=== PATIENT | female | born 1980 | race Caucasian/White ===

== ENCOUNTER 2020-10-05 18:20 | Emergency (ER) | payer BC ==
[2020-10-05 18:31] VITALS: BP 136/95; PULSE 95; TEMP 99; BMI 23.5
[2020-10-05] MEDS ORDERED: ACETYLCYSTEINE 20% 200MG/ML 30ML VIAL *FOR INJECTION USE ONLY IVPB ONE (19:14)
[2020-10-05] MEDS ORDERED: ACETAMINOPHEN 1000 MG/100 ML VIAL (NON FORMULARY) IVPB ONE (19:15)
[2020-10-05] MEDS ORDERED: ACETAMINOPHEN INJECTION 100 ML IVPB ONE (19:19)
[2020-10-05 19:58] LABS: ALBUMIN 4.2 g/dl (3.4-5.0); BILIRUBIN,TOTAL 1.6 mg/dl (0.2-1); CALCIUM 9.4 mg/dl (8.5-10); CREATININE 0.9 mg/dl (0.55-1.3); POTASSIUM 3.9 mmol/L (3.5-5.1); TOT PROT 7.2 g/dl (6.4-8.2)
[2020-10-05 20:19] LABS: HCG,QUALITATIVE URINE NEGATIVE
[2020-10-05 20:23] LABS: EPITHELIAL CELLS MODERATE /hpf
[2020-10-05 20:59] LABS: BASO % 0.2 % (0-2.0); EOS % 0.1 % (0-4.5); HEMATOCRIT 44.9 % (32.4-45.2); HEMOGLOBIN 14.8 GM/dL (10.7-15.3); LYMPH % 11.5 % (8-40); MCH 29.8 pg (25.7-33.7); MCHC 32.9 g/dl (32.0-36.0); MEAN CELL VOLUME 90.4 fl (80-96); MEAN PLT VOLUME 11.7 fl (7.5-11.1); MONO % 8.6 % (3.8-10.2); NEUT % 79.6 % (42.8-82.8); PLATELET COUNT 188 K/MM3 (134-434); RBC 4.97 M/mm3 (3.60-5.2)
[2020-10-05] MEDS ORDERED: metroNIDAZOLE 250 MG TABLET PO ONE (21:25)
[2020-10-05] MEDS ORDERED: levoFLOXacin 750 MG TABLET PO ONE (21:26)
[2020-10-05] MEDS ORDERED: metroNIDAZOLE 250 MG TABLET ONE (21:37)
== END 2020-10-05 21:45 | disposition home or self-care (01) ==
LOC: FER 18:20
PROC: 3E033NZ Introduction of Analgesics, Hypnotics, Sedatives into Peripheral Vein, Percutaneous Approach (ICD-10-PCS; principal; 2020-10-05)
PROC: 3E033GC Introduction of Other Therapeutic Substance into Peripheral Vein, Percutaneous Approach (ICD-10-PCS; 2020-10-05)
DX: K57.92 Diverticulitis of intestine, part unspecified, without perforation or abscess without bleeding (principal)
CPT/HCPCS: 36415; 74177-TC; 80053; 81003; 81015; 84703; 85025; 99285-25; C9803; J0131; Q9967; U0003

== ENCOUNTER 2024-01-03 11:39 | Emergency (ER) | payer BC, OTHER ==
[2024-01-03 11:49] VITALS: RESP 18; TEMP 97.6; BMI 24.5
[2024-01-03] MEDS ORDERED: RABIES VACCINE (PCEC)/PF 2.5 UNIT/VIAL IM ONE (12:26)
[2024-01-03] MEDS ORDERED: RABIES IMMUNE GLOBULIN/PF 300 UNIT/ML (5 ML) VIAL IM ONE (12:26)
[2024-01-03] MEDS: RABIES IMMUNE GLOBULIN 300 UNITS/1 ML VIAL IM ONE (12:45)
[2024-01-03] MEDS: RABIES VACCINE (PCEC)/PF 2.5 UNIT/VIAL IM ONE (12:46)
[2024-01-03 12:50] VITALS: BP 164/90; PULSE 115
== END 2024-01-03 13:30 | disposition home or self-care (01) ==
LOC: FER 11:39
PROC: 3E0234Z Introduction of Serum, Toxoid and Vaccine into Muscle, Percutaneous Approach (ICD-10-PCS; principal; 2024-01-03)
DX: S60.312A Abrasion of left thumb, initial encounter (principal); R00.0 Tachycardia, unspecified; I10 Essential (primary) hypertension; W54.0XXA Bitten by dog, initial encounter; Z20.3 Contact with and (suspected) exposure to rabies
CPT/HCPCS: 90375; 90675; 99284-25

== ENCOUNTER 2024-01-06 16:40 | Emergency (ER) | payer BC ==
[2024-01-06 16:52] VITALS: TEMP 98.4; BMI 24.5
[2024-01-06] MEDS ORDERED: RABIES VACCINE (PCEC)/PF 2.5 UNIT/VIAL IM ONE (16:54)
[2024-01-06] MEDS: RABIES VACCINE (PCEC)/PF 2.5 UNIT/VIAL IM ONE (17:00)
[2024-01-06 17:28] VITALS: BP 165/91; PULSE 98; RESP 16
== END 2024-01-06 17:25 | disposition home or self-care (01) ==
LOC: FER 16:40
DX: Z29.14 Encounter for prophylactic rabies immune globulin (principal)
CPT/HCPCS: 90675; 99281-25

== ENCOUNTER 2024-01-10 17:02 | Emergency (ER) | payer BC ==
[2024-01-10 17:23] VITALS: BP 154/68; PULSE 78; RESP 18; TEMP 97.8; BMI 24.5
[2024-01-10] MEDS ORDERED: RABIES VACCINE (PCEC)/PF 2.5 UNIT/VIAL IM ONE (17:25)
[2024-01-10] MEDS: RABIES VACCINE (PCEC)/PF 2.5 UNIT/VIAL IM ONE (17:26)
== END 2024-01-10 17:30 | disposition home or self-care (01) ==
LOC: FER 17:02
PROC: 3E0234Z Introduction of Serum, Toxoid and Vaccine into Muscle, Percutaneous Approach (ICD-10-PCS; principal; 2024-01-10)
DX: Z29.14 Encounter for prophylactic rabies immune globulin (principal)
CPT/HCPCS: 90675; 99281-25

== ENCOUNTER 2024-01-17 16:54 | Emergency (ER) | payer BC ==
[2024-01-17 17:25] VITALS: BP 150/98; PULSE 83; RESP 20; TEMP 98.7; BMI 26.2
[2024-01-17] MEDS: RABIES VACCINE (PCEC)/PF 2.5 UNIT/VIAL IM ONE (17:38)
== END 2024-01-17 17:44 | disposition home or self-care (01) ==
LOC: FER 16:54
DX: Z29.14 Encounter for prophylactic rabies immune globulin (principal)
CPT/HCPCS: 90675; 99282-25

== ENCOUNTER 2024-05-09 12:39 | Emergency (ER) | payer BC ==
[2024-05-09 13:02] VITALS: RESP 20; TEMP 99.1; BMI 23.5
[2024-05-09] MEDS: ALBUTEROL SO4 2.5/IPRATROPIUM 0.5 INH SOL 3 ML VIAL.NEB. NEB ONE (13:36)
[2024-05-09] MEDS: SODIUM CHLORIDE 0.9% 1000 ML INFUS.BAG IV ONE ×2 (13:36→14:06)
[2024-05-09] MEDS ORDERED: ALBUTEROL SO4 2.5/IPRATROPIUM 0.5 INH SOL 3 ML VIAL.NEB. NEB ONE (13:37)
[2024-05-09 13:41] LABS: INR 0.97 (0.83-1.09); PROTHROMBIN TIME (PATIENT) 11.1 SEC (9.7-13.0)
[2024-05-09 13:58] LABS: HEMATOCRIT 43.2 % (32.4-45.2); HEMOGLOBIN 13.8 G/dL (10.7-15.3); MCH 27.8 pg (25.7-33.7); MEAN CELL VOLUME 86.9 fl (80-96); MEAN PLT VOLUME 11.1 fl (7.5-11.1); PLATELET COUNT 226.8 10^3/uL (134-434); RBC 4.97 10^6/uL (3.60-5.2); RDW 14.5 % (11.6-15.6); WHITE BLOOD COUNT 9.5 10^3/uL (4.0-10.8)
[2024-05-09 14:08] LABS: ALBUMIN 4.4 g/dl (3.4-5.0); ALK PHOS 58 U/L (45-117); ANION GAP 11 mmol/L (4-13); BILIRUBIN,TOTAL 0.5 mg/dl (0.2-1); CALCIUM 9.4 mg/dl (8.5-10.1); CHLORIDE 106 mmol/L (98-107); CO2 24 mmol/L (21-32); CREATININE 0.7 mg/dl (0.6-1.3); GLUCOSE,RANDOM 105 mg/dl (74-106); POTASSIUM 4.2 mmol/L (3.5-5.1); SGOT/AST 13 U/L (15-37); SGPT/ALT 12 U/L (7-52); SODIUM 141 mmol/L (136-145); TOT PROT 6.8 g/dl (6.4-8.2)
[2024-05-09] MEDS: methylPREDNISolone NA SUCC 125 MG/2 ML VIAL IVPUSH ONE (15:08)
[2024-05-09] MEDS ORDERED: methylPREDNISolone NA SUCC 125 MG/2 ML VIAL ONE (15:09)
[2024-05-09 15:37] VITALS: BP 121/78; PULSE 93
== END 2024-05-09 16:14 | disposition home or self-care (01) ==
LOC: FER 12:39
PROC: 3E033GC Introduction of Other Therapeutic Substance into Peripheral Vein, Percutaneous Approach (ICD-10-PCS; principal; 2024-05-09)
PROC: 3E0F7GC Introduction of Other Therapeutic Substance into Respiratory Tract, Via Natural or Artificial Opening (ICD-10-PCS; 2024-05-09)
DX: R00.2 Palpitations (principal); J45.21 Mild intermittent asthma with (acute) exacerbation; R06.02 Shortness of breath; R42 Dizziness and giddiness; R05.9 Cough, unspecified; J02.9 Acute pharyngitis, unspecified; R07.89 Other chest pain; Z20.822 Contact with and (suspected) exposure to COVID-19
CPT/HCPCS: 0241U-QW; 36415; 71045-TC-FY; 80053; 81003; 84443; 84484; 84702; 85027; 85379; 85610; 86850; 86900; 86901; 93005; 93010; 99284-25